=== PATIENT | male | born 1995 | race Caucasian/White ===

== ENCOUNTER 2021-04-04 23:32 | Emergency (ER) | payer SELFPAY ==
[~2021-04-04] VITALS: Ht 167.6 cm; Wt 100.0 kg
[2021-04-04 23:42] VITALS: BP 152/94
[2021-04-04] MEDS ORDERED: PERTUSS(ACELL),DIPH,TET VAC/PF 0.5 ML SYRINGE IM. ONE (23:45)
[2021-04-04] MEDS ORDERED: FentaNYL CITRATE PF 100 MCG/2 ML VIAL IVP ONE (23:45)
[2021-04-04] MEDS ORDERED: CeFAZolin 1 GM/DEXTROSE 50 ML IV ONE (23:45)
== END 2021-04-05 00:30 | disposition short-term general hospital (02) ==
LOC: EMS 23:34
DX: S21.131A Puncture wound without foreign body of right front wall of thorax without penetration into thoracic cavity, initial encounter (principal); S61.432A Puncture wound without foreign body of left hand, initial encounter; W34.00XA Accidental discharge from unspecified firearms or gun, initial encounter; Y93.89 Activity, other specified; Y92.89 Other specified places as the place of occurrence of the external cause; Y99.8 Other external cause status
CPT/HCPCS: 71045; 90471; 90715; 96365; 96375; 99291; J0690; J3010